=== PATIENT | male | born 1980 | race Caucasian/White ===

== ENCOUNTER 2022-10-22 20:25 | Emergency (ER) | payer OTHER ==
[~2022-10-22] VITALS: Ht 165.1 cm; Wt 63.5 kg
[2022-10-22 20:25] VITALS: BP_SYST 109
--- NOTE | 2022-10-22 20:33 | NUR ---
Placed in room 6 . Placed on wincher, blood pressure machine and pulse oximeter. To gown for exam. Side rails up. Report given to SHELDON STRANGE.
--- NOTE | 2022-10-22 21:00 | NUR ---
ER at bedside examining patient.
[2022-10-22 21:20] LABS: BASOPHILS % (AUTO) 0.4 % (0.0-2.0); EOSINOPHILS # (AUTO) 0.1 K/uL (0.0-0.4); EOSINOPHILS % (AUTO) 1.4 % (0.0-4.0); HEMATOCRIT 33.8 % (36-54); HEMOGLOBIN 11.5 g/dL (14.0-18.0); LYMPHOCYTES # (AUTO) 1.7 K/uL (1.0-5.5); LYMPHOCYTES % (AUTO) 29.1 % (20.5-51.5); MEAN CORPUSCULAR HEMOGLOBIN 30 pg (27-31); MEAN CORPUSCULAR HGB CONC 34 % (32-36); MEAN CORPUSCULAR VOLUME 89 fL (79.0-98.0); MONOCYTES # (AUTO) 0.5 K/uL (0.0-1.0); NEUTROPHILS # (AUTO) 3.6 K/uL (1.8-7.7); NEUTROPHILS % (AUTO) 60.1 % (40.0-70.0); PLATELET COUNT (AUTO) 277 K/uL (130-430); RED BLOOD CELL COUNT(AUTO) 3.78 MIL/uL (4.2-6.2); RED CELL DISTRIBUTION WIDTH 14.8 % (9.0-15.0); WHITE BLOOD COUNT (AUTO) 5.9 K/uL (4.8-10.8)
[2022-10-22 21:29] LABS: ALANINE AMINOTRANSFERASE 105 U/L (12-78); ALBUMIN 2.9 g/dL (3.4-4.8); ANION GAP 7 (5-15); ASPARTATE AMINOTRANSFERASE 26 U/L (10-37); CALCIUM 8.6 mg/dL (8.4-11.0); CHLORIDE 100 mmol/L (98-107); CREATININE 0.86 mg/dL (0.55-1.30); GFR AFRICAN AMERICAN 124 mL/min (>90); GLUCOSE 94 mg/dL (70-99); TOTAL BILIRUBIN 0.3 mg/dL (0.0-1.0); UREA NITROGEN, BLOOD 18 mg/dL (8-21)
--- NOTE | 2022-10-22 22:12 | NUR ---
FAMILY AT BEDSIDE, NO COMPLAINTS, SAFETY RAILS UP BED LOWEST POSITION, CHANGED MEENU VALVE DUE TO CURRENT ONE BEING DIRTY. NAD, EVEN UNLABORED RESPIRATIONS VSS CONNECTED TO VS MONITOR.
[2022-10-22] MEDS ORDERED: KETOROLAC TROMETHAMINE 15 MG VIAL IM ONE (22:45)
[2022-10-22] MEDS ORDERED: IBUP-1969 PO (23:42)
[2022-10-23 00:41] VITALS: BP_SYST 115
--- NOTE | 2022-10-23 00:42 | NUR ---
Patient given written and verbal discharge instructions and verbalizes understanding. ER MD discussed with patient the results and treatment provided. Patient in stable condition. ID arm band removed. IV catheter removed intact and dressing applied, no active bleeding. Rx of IBUPROFEN given. Patient educated on NON SPECIFIC CHEST pain management and to follow up with PMD. Pain Scale . Opportunity for questions provided and answered. Medication side effect fact sheet provided.
== END 2022-10-23 00:41 | disposition home or self-care (01) ==
LOC: SED 20:25
DX: R07.2 Precordial pain (principal); M25.511 Pain in right shoulder; R05.9 Cough, unspecified; Z79.899 Other long term (current) drug therapy
CPT/HCPCS: 99285; 71045; 80053; 85025; 84484; 36415; 93005; 96372; J1885